=== PATIENT | male | born 1970 | race Caucasian/White ===

== ENCOUNTER → 2019-08-30 | Outpatient (CLI) | payer OTHER ==
--- NOTE | 2019-08-30 09:56 | PFTRPT ---
Height: 71.00 Inches Weight: 190.00 Lbs BSA: 2.06 Diagnosis: JOHNSON DATE OF STUDY: 08/30/2019 ORDERED BY: Dr. Mckeon Spirometry: Pre and post bronchodilator study of excellent technical quality. Forced vital capacity normal. FEV1 in proportion. Obstructive index is, therefore, normal. Flow Volume Loop: Expiratory limb of the flow volume loop is normal. No significant bronchodilator response identified. Lung Volumes: Total lung capacity normal. Residual volume is in proportion. Diffusing Capacity: Diffusing capacity normal. Hemoglobin: Hemoglobin acceptable at 14.4. Airway Mechanics: Airway resistance and conductance are normal. IMPRESSION: Normal study. MTDD
== END ==
LOC: M CARPUL 08:58
PROVIDERS: ATTEND Family Medicine
DX: J44.9 Chronic obstructive pulmonary disease, unspecified (principal)

== ENCOUNTER → 2019-10-07 | Outpatient (CLI) | payer OTHER ==
[~2019-10-07] MED LIST: METHACHOLINE KIT (J7674) INH ONE
--- NOTE | 2019-10-07 09:30 | PFTRPT ---
Visit Date: 10/07/2019 Referring Doctor: Delta Tidwell D.O. Height: 71.00 Inches Weight: 190.00 Lbs BSA: 2.06 Diagnosis: R06.00 Study of excellent technical quality. Under protocol, methacholine was administered. At a maximal dose of 25 mg or 188.875 CDUs, only an 18% decline in the FEV1 was achieved. This does not meet diagnostic criteria for a positive study. Flow rates did return to baseline post bronchodilator administration. IMPRESSION: Essentially negative methacholine challenge study. Clinical correlation with the above is recommended. MTDD
== END ==
LOC: M CARPUL 08:23
PROVIDERS: ATTEND Internal Medicine Pulmonary Disease
DX: R06.00 Dyspnea, unspecified (principal)
CPT/HCPCS: 94070; J7674

== ENCOUNTER → 2019-10-11 | Outpatient (CLI) | payer OTHER ==
--- NOTE | 2019-10-11 14:24 | REP ---
CHEST X-RAY: Two views. HISTORY: Dyspnea. No comparison study. FINDINGS: There is a S-shaped thoracic scoliotic curve mild in degree. No other bony abnormality is seen. The lungs are symmetrically aerated and clear. The pleural angles are sharp. Heart size is normal. Pulmonary vasculature is not increased. IMPRESSION: Mild scoliosis in the thoracic spine. Otherwise no acute disease. Electronically Signed by Chriss Chou MD 10/11/2019 03:53 P
== END ==
LOC: M RAD 12:30
PROVIDERS: ATTEND Physician Assistant
DX: R06.02 Shortness of breath (principal)